=== PATIENT | female | born 1980 | race African-American/Black ===

== ENCOUNTER 2017-05-28 00:30 | Inpatient (IN) | payer OTHER ==
[~2017-05-28] VITALS: Ht 152.4 cm; Wt 48.4 kg
[2017-05-28 03:15] VITALS: BP 123/76; PULSE 73; RESP 14; TEMP 97.3; O2SAT 97
[2017-05-28] MEDS ORDERED: KLON2TAB PO (03:56)
[2017-05-28] MEDS ORDERED: PROP20TA3 PO (03:56)
[2017-05-28] MEDS ORDERED: ACETAMINOPHEN 325 MG TAB PO PRN (04:15)
[2017-05-28] MEDS ORDERED: LORazepam 2 MG/ML VIAL IM PRN ×2 (04:15→10:15)
[2017-05-28] MEDS ORDERED: LORazepam 1 MG TAB PO PRN (04:15)
[2017-05-28] MEDS ORDERED: ALUMINUM/MAGNESIUM/SIMETH 30 ML CUP PO PRN (04:15)
[2017-05-28] MEDS ORDERED: MAGNESIUM HYDROXIDE SUSP 30 ML CUP PO PRN (04:15)
[2017-05-28 05:58] VITALS: BP 105/60; PULSE 60; RESP 20; TEMP 97.5
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
[2017-05-28] MEDS: PROPRANOLOL HCL 20 MG TAB PO SCH ×2 (08:57→20:10)
[2017-05-28] MEDS: clonazePAM 1 MG TAB PO SCH ×2 (08:58→21:47)
[2017-05-28] MEDS: NICOTINE 21 MG/24 HR PATCH T-DERMAL SCH (08:59)
[2017-05-28 09:24] VITALS: BP 116/78; PULSE 78
[2017-05-28] MEDS ORDERED: LORazepam 0.5 MG TAB PO PRN (10:15)
[2017-05-28 14:09] LABS: HDL CHOLESTEROL 45.1 MG/DL (40.0-60.0); LDL CHOLESTEROL 223 MG/DL (0-99)
[2017-05-28 18:11] VITALS: BP 104/71; PULSE 80; RESP 18; TEMP 98; O2SAT 100
[2017-05-28] MEDS: REMOVE OLD NICOTINE PATCH T-DERMAL SCH (21:00)
[2017-05-29 05:34] VITALS: BP 102/68; PULSE 70; RESP 18; TEMP 98.6; O2SAT 96
[2017-05-29] MEDS: PROPRANOLOL HCL 20 MG TAB PO SCH ×2 (07:46→20:01)
[2017-05-29] MEDS: NICOTINE 21 MG/24 HR PATCH T-DERMAL SCH (09:00)
[2017-05-29] MEDS: clonazePAM 1 MG TAB PO SCH ×2 (09:42→21:16)
--- NOTE | 2017-05-29 10:31 | HHI.PYPN ---
Subjective Chief Complaint: Suicidal statements Remarks Patient seen and examined with nurse. Chart reviewed. Case discussed with RN. No behavioral issues overnight. I do note that patient's Inderal had to be held x 2 doses because of parameters. On my exam, patient reports that she feels less anxious today. She has spoken with her and says they plan to spend some time apart and pursue marriage counseling. She also wants to pursue individual therapy. She denies SI/HI. Denies AVH. We discuss that Inderal had to be held; she denies having symptoms of symptomatic hypotension or bradycardia now or at home when she takes this med. I did suggest again considering an alternative or augmenting agent for her anxiety that might have a less deleterious effect on her vital signs. Patient wishes to continue with current regimen as ordered for now. Nurse suggests and I agree that it would be a good idea to check vitals at home and hold Inderal with BP/HR parameters as here. Denies side effects from medications. No physical complaints. Suggests calling daughter Evelyne Moreira as a source of collateral [phone] , and I have forwarded this number to the counselor. Review of Systems Except as stated in HPI: all other systems reviewed are Neg Mental Status Examination Appearance: Appropriate Consciousness: Alert Orientation: x4 Motor Activity: Other (no abnormal motor movements noted) Speech: Unremarkable Language: Adequate Fund of Knowledge: Adequate Attention and Concentration: Adequate Memory: Unremarkable (intact on clinical examination) Mood: Appropriate, Other (calm) Affect: Appropriate Thought Process & Associations: Intact, Logical, Linear Thought Content: Appropriate Hallucination Type: None Delusion Type: None Suicidal Ideation: No Suicidal Plan: No Suicidal Intention: No Homicidal Ideation: No Homicidal Plan: No Homicidal Intention: No Insight: Fair Judgment: Impulsive Results Labs Test 05/28/17 13:11 Triglycerides Level 91 MG/DL Cholesterol Level 286 MG/DL LDL Cholesterol 223 MG/DL HDL Cholesterol 45.1 MG/DL Cholesterol/HDL Ratio 6.34 RATIO Beta HCG, Qualitative 2 MIU/ML Labs reviewed. Hemoglobin A1c is pending. Primary care follow-up on discharge for lipid panel abnormalities. Vitals/IOs Vital Signs Date Time Temp Pulse Resp B/P (MAP) Pulse Ox O2 Delivery O2 Flow Rate FiO2 05/29/17 05:34 98.6 70 18 102/68 (79 96 Assessment & Plan Problem List: (1) Adjustment disorder with mixed disturbance of emotions and conduct ICD Codes: F43.25 - Adjustment disorder with mixed disturbance of emotions and conduct (2) Chronic post-traumatic stress disorder ICD Codes: F43.12 - Post-traumatic stress disorder, chronic (3) Other mixed anxiety disorders ICD Codes: F41.3 - Other mixed anxiety disorders Assessment & Plan Continue Klonopin and Inderal as ordered. Continue to monitor on the inpatient unit. Counselor to obtain collateral information. Continue other medications and care as ordered. Justification for Cont. Inpt. Monitoring for impairments in safety. None noted. Discharge Planning Possible discharge tomorrow, Monday. Request HC Surrog/Guard Advoc?: No Abdulaziz Ochoa MD May 29, 2017 10:31
[2017-05-29 15:56] VITALS: BP 124/74; PULSE 89; RESP 18; TEMP 98.6; O2SAT 98
[2017-05-29 16:04] LABS: HEMOGLOBIN A1a 0.9 %; HEMOGLOBIN A1b 0.8 %; HEMOGLOBIN Ao 86.1 %; HEMOGLOBIN F 0.7 %; HEMOGLOBIN LA1C 1.3 %; HEMOGLOBIN P3 3.4 %
[2017-05-29] MEDS: REMOVE OLD NICOTINE PATCH T-DERMAL SCH (21:00)
[2017-05-30 05:45] VITALS: BP 119/70; PULSE 81; RESP 17; TEMP 98.1; O2SAT 99
[2017-05-30] MEDS: PROPRANOLOL HCL 20 MG TAB PO SCH (08:27)
[2017-05-30] MEDS: clonazePAM 1 MG TAB PO SCH (08:27)
[2017-05-30] MEDS: NICOTINE 21 MG/24 HR PATCH T-DERMAL SCH (08:28)
--- NOTE | 2017-05-30 08:28 | HHI.DS ---
Psychiatry Discharge Summary Inpatient Psychiatric care?: Yes Advance Directive: No Reason Not Provided: DENIES Mental Health AdvanceDirective: No Health Care Proxy: No Admission Admission Date May 28, 2017 at 00:30 Admission Diagnosis: (1) Adjustment disorder with mixed disturbance of emotions and conduct ICD Code: F43.25 - Adjustment disorder with mixed disturbance of emotions and conduct (2) Chronic post-traumatic stress disorder ICD Code: F43.12 - Post-traumatic stress disorder, chronic (3) Other mixed anxiety disorders ICD Code: F41.3 - Other mixed anxiety disorders Brief History Ms. Forte is a 36-year-old female with a reported history of depression who presents in transfer from [facility] under a [place] act. The patient presented there with reported suicidal thoughts in response to psychosocial stressors. She denied any ingestions. She was medically cleared and transferred here to [place]. Reviewing our electronic medical record I note this is patient's first visit to [place]. Patient seen and examined with nurse. Chart reviewed. Case discussed with nursing staff. On my examination today, the patient denies any robinson howard suicidal ideation, intent or plan. She says that she just made suicidal statements "because I want the attention." She has a history of making similar statements in the past, but apparently this time she also posted some of these statements on social media, which is new. She says that she would never actually hurt herself because of her children and also because she is scared of dying. She says that this most recent episode of suicidal statements was occasioned by her moving out of the house. She notes that "I like to do little things to agitate my like inviting his ex- to his birthday libertarian" coming up. apparently learned of this invitation which led to an argument and him moving out. They also had been arguing because she thought was looking at pornography on his phone. She endorses anxiety, both generalized and panicky, the latter chiefly while driving. She endorses feeling frequently overwhelmed and endorses concentration difficulty. She is often neumann, but I can elicit no current or prior hypomanic/manic symptoms. She does have a trauma history and reports that she occasionally sees [facility] of shadows. She also endorses flashbacks to previous trauma. I can elicit no other hallucinatory material. No delusional material. Denies homicidal ideation. The remainder of the psychiatric ROS is negative. The patient has no physical complaints. Past psychiatric history: Patient reports a history of depression diagnosed in 2013. She follows with Dr. Braswell through the [facility]. She is reportedly prescribed Inderal and Klonopin. She takes the Klonopin twice a day in divided doses instead of the full 2 mg daily at bedtime dose. She reports that she was admitted in August 2013. She denies a history of suicide attempts. Tobacco Use In Past 30 Days: No Tobacco Past 30 Days Alcohol Use: Never Hospital Course Patient was admitted to a locked, inpatient psychiatric unit. Appropriate precautions were in place throughout patient's hospital stay. Patient was seen and examined daily on the unit by psychiatry and also visited by counselor. Patient declined any psychotropic medication adjustment and so prior to admission psychotropic medications were continued. The patient tolerated these medications well but was unable to receive her propranolol on more than one occasion because of blood pressure and heart rate parameters. I did recommend that she consider medication adjustment given this issue, but she continued to decline such. There was no evidence of behavioral disturbance on the unit. There was no evidence of any suicidality or homicidality on the inpatient unit. Collateral was obtained from patient's daughter by the counselor, and I did discuss this collateral with counselor. 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 The patient completed a right of release. On the day of discharge: Patient seen and examined with nurse. Chart reviewed. Case discussed with nursing staff and in treatment team. No behavioral issues overnight. On my examination today, the patient is requesting discharge from the inpatient psychiatric unit today. She denies any suicidal or homicidal ideation, intent or plan on direct questioning and contracts for safety. No depressive or hypomanic/manic symptoms elicited. She denies audiovisual hallucinations and I can elicit no delusional material. There is no evidence of impairment in reality construction. No reported anxious or PTSD symptoms. She denies side effects from medications. No physical complaints. Suicide and violence risk assessment on day of discharge both suggest lower imminent risk. Cluster B personality style likely confers chronic but not acute or imminent risk and would not be ameliorated by a longer inpatient psychiatric hospital stay. Psychotherapeutic follow-up was recommended. Patient's level of function is adequate for outpatient care and there is no evidence of self care deficit. Patient will be discharged today with psychiatric follow-up as arranged by counselor. Patient is also to follow-up with primary care, and I have in particular instructed the patient to follow-up with primary care regarding her lipid panel abnormalities. Patient reports that she has an adequate supply of her psychotropics at home and does not require any prescriptions today. I have counseled the patient regarding warning signs for need to return to the psychiatric emergency room as part of a general safety plan. Results Blood Pressure 119 / 70 Vital Signs Date Time Temp Pulse Resp B/P (MAP) Pulse Ox O2 Delivery O2 Flow Rate FiO2 05/30/17 05:45 98.1 81 17 119/70 (86) 99 Laboratory Tests Test 05/28/17 13:11 Cholesterol Level 286 MG/DL (120-200) LDL Cholesterol 223 MG/DL (0-99) Laboratory Results Test 05/28/17 13:11 Cholesterol Level 286 MG/DL (120-200) HDL Cholesterol 45.1 MG/DL (40.0-60.0) Hemoglobin A1c 5.7 % (4.3-6.0) LDL Cholesterol 223 MG/DL (0-99) Triglycerides Level 91 MG/DL (42-150) Summary of Procedures None done Imaging None done Pending results at discharge: No Medications # of Antipsychotic meds at D/C: 0 Approp Antipsych med options 1 - Minimum of three failed multiple trials of monotherapy. 2 - Documented plan to taper to monotherapy due to previous use of multiple meds OR cross-taper in progress at D/C. 3 - Documentation of augmentation of Clozapine. 4 - Justification other than those listed in allowable values 1-3, document here : Discharge Discharge Date: May 30, 2017 Discharge Diagnosis: (1) Adjustment disorder with mixed disturbance of emotions and conduct Diagnosis: Principal (resolved) ICD Code: F43.25 - Adjustment disorder with mixed disturbance of emotions and conduct (2) Chronic post-traumatic stress disorder Diagnosis: Secondary ICD Code: F43.12 - Post-traumatic stress disorder, chronic (3) Other mixed anxiety disorders Diagnosis: Secondary ICD Code: F41.3 - Other mixed anxiety disorders (4) Borderline-histrionic personality traits Diagnosis: Secondary Pt Condition on Discharge: Stable Discharge Disposition: Discharge Home Discharge Instructions Diet Instructions: As Tolerated, No Restrictions Activities you can perform: Weight Bearing as Pérez [facility] Medications: Clonazepam (Klonopin) 2 Mg Tab 2 MG PO HS, #60 TAB 0 Refills Propranolol (Propranolol) 20 Mg Tab 20 MG PO Q12HR, #60 TAB 0 Refills Discharge Time > 30 minutes Mental Status Examination Appearance: Appropriate Consciousness: Alert Orientation: x4 Motor Activity: Other (no motor abnormalities noted) Speech: Unremarkable Language: Adequate Fund of Knowledge: Adequate Attention and Concentration: Adequate Memory: Unremarkable (grossly intact on clinical exam) Mood: Appropriate, Other (calm) Affect: Appropriate Thought Process & Associations: Intact, Logical, Goal directed, Linear Thought Content: Appropriate Hallucination Type: None Delusion Type: None Suicidal Ideation: No Suicidal Plan: No Suicidal Intention: No Homicidal Ideation: No Homicidal Plan: No Homicidal Intention: No Insight: Fair Judgment: Impulsive (likely chronic condition) Discharge/Advance Care Plan Health Problems: (1) Adjustment disorder with mixed disturbance of emotions and conduct (2) Chronic post-traumatic stress disorder (3) Other mixed anxiety disorders Goals to promote your health * To prevent worsening of your condition and complications * To maintain your health at the optimal level Directions to meet your goals Take your medications as prescribed Follow your dietary instruction Follow activity as directed Keep your appointments as scheduled Take your immunizations and boosters as scheduled If your symptoms worsen call your PCP, if no PCP go to Urgent Care Center or Emergency Room For 23/01 questions related to your inpatient stay or results of tests pending at discharge, please contact Dr. Abdulaziz Ochoa at Smoking is Dangerous to Your Health. Avoid second hand smoking Abdulaziz Ochoa MD May 30, 2017 08:27
--- NOTE | 2017-05-30 09:05 | PD.TTN ---
Patient Problems 1. Discharge planning 2. Medication compliance 3. Knowledge deficit 4. Lack of coping skills Progress Toward Goals Provider Present: Dr. Armand Ochoa Provider Input: Patient will be discharged today and will [facility]. Patient has been compliant with medications and has denied side effects. Patient is currently denying suicidial ideations and reports no behavioral issues Nurse(s) Input: Patient is compliant with medications and has no behavioral issues. Patient is sleeping and eating and attending to basic ADLs. Patient is cooperative and will be discharged today. Psychiatric Counselors Present: WALTER Joy Psych Therapist Input: Patient has provided insight upon admission and denies suicidal ideations. patient is able to provide appropriate goals for self upon discharge. Patient will have follow up care upon discharge. Group Spec/RT/OT/DIAZ Present: Glenn Barker OT Group Spec/RT/OT/DIAZ Input: Patient is selective with groups. Bertha Causey May 30, 2017 09:05
== END 2017-05-30 09:45 | disposition home or self-care (01) | DRG 882 ==
LOC: H250 00:30 → H260 19:12
PROVIDERS: ADMIT Psychiatry & Neurology Psychiatry; ATTEND Psychiatry & Neurology Psychiatry
DX: F43.25 Adjustment disorder with mixed disturbance of emotions and conduct (principal); R45.851 Suicidal ideations; F43.12 Post-traumatic stress disorder, chronic; Z79.899 Other long term (current) drug therapy; F41.3 Other mixed anxiety disorders
CPT/HCPCS: 80061; 83036; 84703